=== PATIENT | male | born 1980 | race Caucasian/White ===

== ENCOUNTER 2020-06-16 08:36 | Outpatient (REF) | payer OTHER, SELFPAY ==
[2020-06-16 09:48] LABS: Hematocrit 50.2 % (42-52); Hemoglobin 16.4 g/dl (14.0-18.0); Mean Corpuscular HGB Conc 32.7 g/dl (31.0-36.0); Mean Corpuscular Hemoglobin 30.3 pg (27.0-33.0); Mean Corpuscular Volume 92.6 fL (80-98); Mean Platelet Volume 10.6 fL (9.4-12.4); Platelet Count 271 X10*3/uL (160-400); Red Blood Count 5.42 X10*6/uL (4.60-5.80); Red Cell Distribution Width 12.5 % (11.0-16.0); White Blood Count 9.8 X10*3/uL (4.8-10.8)
[2020-06-16 10:13] LABS: Alanine Aminotransferase 39 U/L (0-40); Albumin Level 4.6 g/dL (3.5-5.0); Alkaline Phosphatase 83 U/L (39-117); Anion Gap 13 (12-20); Aspartate Amino Transferase 21 U/L (5-37); Bilirubin Total 0.4 mg/dL (0.0-1.0); Blood Urea Nitrogen 14 mg/dL (9-16); Calcium 9.4 mg/dL (8.4-10.2); Carbon Dioxide 28 mmol/L (22-29); Chloride 103 mmol/L (96-108); Cholesterol 195 mg/dL; Estimated Glomerular Filt Rate > 60; Glucose Fasting 118 mg/dL (60-99); HDL Cholesterol 35 mg/dL; LDL Cholesterol Calculated 112 mg/dl; Potassium 4.3 mmol/l (3.3-5.1); Sodium 140 mmol/L (135-145); Total Protein 7.8 g/dL (6.5-8.0); Triglycerides 240 mg/dL
[2020-06-16 10:22] LABS: Estimated Average Glucose 126 mg/dL
[2020-06-16 10:37] LABS: TSH reflex Free T4 1.22 mIU/mL (0.32-4.0)
== END 2020-06-16 08:37 | disposition home or self-care (01) ==
LOC: HO.LAB 08:36
PROVIDERS: Visit Provider Physician Assistant
DX: I10 Essential (primary) hypertension (principal); K64.9 Unspecified hemorrhoids; K76.0 Fatty (change of) liver, not elsewhere classified; Z13.1 Encounter for screening for diabetes mellitus; Z13.220 Encounter for screening for lipoid disorders
CPT/HCPCS: 36415; 80053; 80061; 83036; 84443; 85027

== ENCOUNTER → 2020-06-30 09:02 | Outpatient (BNVA) | payer OTHER, SELFPAY | PROVIDERS: PCP Physician Assistant; Visit Provider Surgery | DX: K42.9 Umbilical hernia without obstruction or gangrene (principal); K40.90 Unilateral inguinal hernia, without obstruction or gangrene, not specified as recurrent | CPT/HCPCS: 99202 ==

== ENCOUNTER 2020-07-15 09:50 | Day surgery (SDC) | payer OTHER, SELFPAY ==
--- NOTE | 2020-07-13 13:57 | HO.ANESPROP2 ---
Documented by User: Mirlande Blanco 07/13/20 13:59 HPI - Anesthesia Eval Consult details Narrative: 39yo M for Hernia Repair Umbilical with Mesh PMFSH Active Problems Active Problems: All Active Problems (Updated 07/13/20 @ 10:25 by Manuel Javier PA-C) Impaired glucose metabolism (Acute) HTN (hypertension) (Acute) Hypertriglyceridemia (Acute) Screening for hypercholesterolemia (Acute) Fatty liver (Acute) Screening for diabetes mellitus (DM) (Acute) Bleeding hemorrhoid (Acute) Inguinal hernia (Acute) Umbilical hernia (Acute) Past Medical History Medical History Fatty liver HTN (hypertension) Hypertriglyceridemia Inguinal hernia Umbilical hernia Family History Family History Father Myocardial infarction Mother Myocardial infarction Surgical History Surgical History History of back surgery Social History Social History Alcohol intake: never Smoking Status: Former smoker Substance Use Type: Marijuana Advance Directives: No Advance Directives Information Provided: Yes Meds Allergies Allergy/AdvReac Type Severity Reaction Status Date / Time No Known Allergies Allergy Verified 07/15/20 10:38 Exam Exam Date and Time: July 13, 2020 1357 Pertinent Lab Results Pertinent Lab Results: Laboratory Tests 06/16/20 06/16/20 08:49 08:49 WBC 9.8 Hgb 16.4 Hct 50.2 Plt Count 271 Sodium 140 Potassium 4.3 Chloride 103 Carbon Dioxide 28 BUN 14 Creatinine 0.93 Assessment and Plan Assessment Anesthesia Assessment: Chart Reviewed Documented by User: Hector Crocker 07/15/20 10:50 PMFSH Past Medical History Medical History Fatty liver HTN (hypertension) Hypertriglyceridemia Inguinal hernia Umbilical hernia Family History Family History Father Myocardial infarction Mother Myocardial infarction Surgical History Surgical History History of back surgery Social History Social History Alcohol intake: never Smoking Status: Former smoker Substance Use Type: Marijuana Advance Directives: No Advance Directives Information Provided: Yes Meds Allergies Allergy/AdvReac Type Severity Reaction Status Date / Time No Known Allergies Allergy Verified 07/15/20 10:38 Exam Airway Mallampati Class: II TM Dist: >3cm Neck ROM: Full Loose/Missing/Broken Teeth: Yes and Upper
[2020-07-14 09:56] VITALS: BMI 32.0
[2020-07-15] VITALS (12 sets, daily range): BP systolic 128–154; BP diastolic 86–100; PULSE 85–107; RESP 11–20; TEMP 36.2–36.6; O2SAT 95–99; BMI 31.1
[2020-07-15] MEDS: Lactated Ringers 1,000 ML 100 ML IVCONT (11:24)
--- NOTE | 2020-07-15 11:34 | MHC.SHP ---
Pre-Procedural Eval Section B Chief Complaint: Umbilical Hernia Allergies: Allergies Allergy/AdvReac Type Severity Reaction Status Date / Time No Known Allergies Allergy Verified 07/15/20 10:38 Plan I have reviewed the history and physical and performed a pertinent physical examination on my patient. No changes have occurred unless specified.
--- NOTE | 2020-07-15 11:34 | W.PM.OPN ---
Operative Note Operative Note Date of Service: 07/15/20 Narrative: Preop diagnosis: Umbilical hernia Postop diagnosis: Umbilical hernia Surgeon: Alok Bhatt MD
--- NOTE | 2020-07-15 12:32 | P.BOP_ITS ---
Brief Operative Note Date of Service: 07/15/20 Pre-op diagnosis: umbilical hernia Post-op diagnosis: same Procedure: repair of umbilical hernia with mesh Implants: mesh Surgeon: Alok Bhatt MD Anesthesia: GLMA Drawbench Operator: Sonali Henley Estimated blood loss (mL): 1 Pathology: none sent Condition: stable Disposition: PACU
--- NOTE | 2020-07-15 12:33 | W.PM.OPN ---
Operative Note Operative Note Date of Service: 07/15/20 Narrative: Procedure done: Repair of umbilical hernia with Ventralex mesh Preop diagnosis: umbilical hernia Postop diagnosis: the same Surgeon: Alok Bhatt M.D. physician assistant: SHERIF Henley The patient is a 39-year-old male with a mass on the umbilicus, consistent with umbilical hernia. Partially reducible. In view of increase in size and symptoms he wanted to proceed with repair. He understood the technique of repair with mesh. He was aware of the risks, benefits, and alternatives. The patient was brought to the operating room and placed supine the table under general anesthesia via laryngeal mask airway. The periumbilical area was prepped and draped in the usual sterile fashion. A surgical time-out was done. The patient received cefazolin 2 g IV preoperatively. I infiltrated the planned line of incision with lidocaine 1%. I made the incision using a blade 15 on the supraumbilical margin transversely. This was carried down through the full-thickness of the skin and subcutaneous fat. I proceeded to lift up the umbilicus as a flap using Allis clamps. I divided adhesions on the umbilicus to the hernia sac. This was done using Metzenbaum scissors and the cautery. I proceeded to continue to define the sac down to the fascial edge. This was done by dissecting the entire hernia and its contents using Metzenbaum scissors and electrocautery. By doing so we were able to clearly define the fascial edge. The fascial defect was about 2 cm. I then proceeded to continue to dissect the rest of the adherent fibrous tissue from the hernia contents. The hernia contents consisted of only omental fat. I was able to reduce the hernia completely and defined the margins around this at the peritoneal surface. I used a small-sized Ventralex mesh. This was positioned underneath the abdominal wall and flattened. This provided adequate coverage of the fascia defect. I secured the mesh with Prolene 2-0 sutures to the fascial edges to the Prolene straps on both sides. The Prolene straps were then trimmed flush on the fascial layer. I closed the fascial defect with a [id number] Maxon 1 stitch. The umbilicus was tacked down to the fascia with Dexon 2-0 sutures to recreate the dimple. The subdermal layer was reapposed with Dexon 3-0 interrupted sutures. The incision was closed with a running subcuticular Dexon 4-0 sutures. Dressings were applied. The incision was infiltrated with Marcaine 0.5% for postop analgesia and the procedure was completed The patient tolerated the procedure well. There were no immediate complications noted. Initial fine counts sponges and instruments were correct. Estimated blood loss was minimal. The patient was extubated without difficulty and transferred to the recovery room with stable vital signs.
[2020-07-15] MEDS: oxyCODONE HCl Immed Release 5 MG TABLET 10 MG PO (12:52)
[2020-07-15] MEDS: fentaNYL citrate/PF 100 MCG/2 ML VIAL 50 MCG IVPUSH ×3 (12:55→13:20)
== END 2020-07-15 14:22 | disposition home or self-care (01) ==
PROVIDERS: PCP Physician Assistant; Visit Provider Surgery
PROC: (CPT 49585; principal; 2020-07-15 12:30)
DX: K42.9 Umbilical hernia without obstruction or gangrene (principal); I10 Essential (primary) hypertension
CPT/HCPCS: 49585; C1781; J0690; J1100; J2250; J2405; J3010

== ENCOUNTER 2020-11-25 15:40 | Outpatient (REF) | payer OTHER, SELFPAY ==
--- NOTE | ~2020-11-25 | US_ITS ---
EXAMINATION: US SOFT TISSUE OF THE NECK CLINICAL INFORMATION: Mass on left side of neck. COMPARISON: None TECHNIQUE: Linear transducer grayscale and color Doppler examination of the left lateral neck. FINDINGS: There is a 0.8 x 0.6 x 0.9 cm left cervical lymph node in the area of palpable abnormality. This is normal in size and demonstrates normal ultrasound morphology and flow. No soft tissue mass or fluid collection is seen. US/US soft tiss head and/or neck IMPRESSION: Normal left cervical lymph node in the area of palpable abnormality.
== END 2020-11-25 15:41 | disposition home or self-care (01) ==
LOC: HO.US 15:40
PROVIDERS: PCP Physician Assistant; Visit Provider Physician Assistant
DX: R22.1 Localized swelling, mass and lump, neck (principal)
CPT/HCPCS: 76536

== ENCOUNTER → 2021-04-05 08:53 | Outpatient (BNVA) | payer OTHER, SELFPAY | PROVIDERS: PCP Physician Assistant; Referring Provider Physician Assistant; Visit Provider Surgery | DX: K40.20 Bilateral inguinal hernia, without obstruction or gangrene, not specified as recurrent (principal) | CPT/HCPCS: 99212 ==

== ENCOUNTER 2021-04-29 15:10 | Emergency (ER) | payer OTHER, SELFPAY ==
--- NOTE | ~2021-04-29 | CT_ITS ---
EXAMINATION: CT THORACIC SPINE WITHOUT CONTRAST CT LUMBAR SPINE WITHOUT CONTRAST CLINICAL INFORMATION: Back pain. T9 tenderness. Positive straight leg raise. COMPARISON: CT abdomen/pelvis dated 01/20/2020. Chest radiograph dated 10/27/2010. TECHNIQUE: Contiguous axial CT images of the thoracic spine were obtained without contrast. Contiguous axial CT images of the lumbar spine were obtained without contrast. Sagittal and coronal reformats were provided and reviewed. This CT examination was performed using dose optimization techniques as appropriate, variously including the following: *Automated exposure control. *Adjustment of mA and/or kV according to patient size (this includes techniques or standardized protocols for targeted exams where dose is matched to indication/reason for exam; i.e. extremities or head). *Use of iterative reconstruction technique. DOSE: 2043 mGy-cm FINDINGS: THORACIC SPINE: Redemonstration of thoracic spine and dextrocurvature with dorsal stabilization hardware. Evaluation somewhat limited secondary to hardware artifact, however, no hardware fracture. No perihardware lucency to suggest loosening or infection. There is diffuse bony fusion of the posterior elements. No acute osseous fracture. No significant subluxation. No loss of vertebral body height. Mild multilevel loss of intervertebral disc height. No significant endplate degenerative changes. No lytic or blastic osseous lesion. Mild dependent atelectasis within the visualized lungs. No soft tissue mass or fluid collection. LUMBAR SPINE: Posterior stabilization hardware to the thoracic spine extending to the posterior elements of L1. No visualized hardware abnormality. The lumbar lordosis is maintained. No acute fracture or subluxation. No loss of vertebral body or intervertebral disc height. No lytic or blastic osseous lesion. Mild bilateral facet arthropathy at L4 through S1. The visualized paraspinal soft tissues are unremarkable. No abnormal soft tissue mass or fluid collection. Left extraforaminal disc protrusion at L3-L4 which contacts the exiting left L3 nerve root and causes mild left neural foraminal stenosis. No additional significant central canal or neural foraminal stenosis. CT/CT thoracic spine wo con IMPRESSION: THORACIC SPINE: 1. Dextrocurvature of the thoracic spine with posterior stabilization hardware. No evidence of hardware complication. Diffuse osseous bridging of the posterior elements. 2. No acute fracture. No lytic or blastic osseous lesion. LUMBAR SPINE: 1. A left extraforaminal disc protrusion at L3-L4 which contacts the exiting left L3 nerve root and causes mild left neural foraminal stenosis. 2. No acute osseous abnormality.
--- NOTE | ~2021-04-29 | CT_ITS ---
EXAMINATION: CT HEAD WITHOUT CONTRAST CLINICAL INFORMATION: Dizziness. COMPARISON: CT head dated from 05/14/2016. TECHNIQUE: Contiguous axial imaging was performed from the skull base to vertex without intravenous administration of contrast. This CT examination was performed using dose optimization techniques as appropriate, variously including the following: *Automated exposure control *Adjustment of mA and/or kV according to patient size (this includes techniques or standardized protocols for targeted exams where dose is matched to indication/reason for exam; i.e. extremities or head) *Use of iterative reconstruction technique DLP: 477 mGy-cm FINDINGS: There is no evidence of acute intracranial hemorrhage or edematous territorial infarction. There is no abnormal attenuation within the brain parenchyma. Mays-white matter differentiation is preserved. The ventricles are normal in size and configuration. No evidence for obstructive hydrocephalus. No abnormal mass effect or midline shift. No extra-axial fluid collections. No acute soft tissue or osseous abnormalities. Mucous retention cysts in the maxillary sinuses. The mastoids are clear. CT/CT head/brain wo con IMPRESSION: No evidence of acute intracranial hemorrhage or edematous territorial infarction.
[2021-04-29 15:15] VITALS: BP 150/96; PULSE 100; RESP 18; TEMP 36.8; O2SAT 98; BMI 31.1
--- NOTE | 2021-04-29 16:38 | ED_ITS ---
HPI - Back Pain/Injury General Chief Complaint: Back Pain/Injury Stated Complaint: back pain Time Seen by Provider: 04/29/21 16:38 Source: patient Mode of arrival: ambulatory Limitations: no limitations History of Present Illness HPI Narrative: 40-year-old male with a history of back surgeries, presents for atraumatic bilateral low back pain, which .comes and goes, and the pain, radiates down his right leg. Patient has pain,with ambulation. States he has some tingling in his buttock. And the right leg pain,.stops at his knee. Patient and patient has also had a headache and has felt nauseous for the last 2 weeks. Patient feels dizzy when he sits up. Patient has a past medical history of prediabetes, hypertension, hyperlipidemia. He is vaccinated for COVID. Related Data Previous Rx's Medication Instructions Recorded cetirizine 10 mg tablet (Allergy 10 mg PO DAILY PRN 90 Days #90 tab 03/09/21 Relief (cetirizine)) cyclobenzaprine 5 mg tablet 5 mg PO TID PRN 10 Days #30 tab 03/09/21 docusate sodium 100 mg capsule 100 mg PO DAILY #30 cap 03/09/21 gemfibrozil 600 mg tablet 600 mg PO BID 30 Days #60 tab 03/09/21 hydrochlorothiazide 12.5 mg tablet 12.5 mg PO DAILY 30 Days #30 tab 03/09/21 naproxen 500 mg tablet 500 mg PO BID 15 Days #30 tab 03/09/21 amoxicillin 875 mg-potassium 1 tab PO BID 10 Days #20 tab 04/29/21 clavulanate 125 mg tablet (Augmentin) cyclobenzaprine 5 mg tablet 5 mg PO TID PRN 3 Days #9 tab 04/29/21 ketorolac 10 mg tablet 10 mg PO Q6H 5 Days #20 tab 04/29/21 Allergies Allergy/AdvReac Type Severity Reaction Status Date / Time No Known Allergies Allergy Verified 04/05/21 09:01 Review of Systems Constitutional: Constitutional: Denies body ache(s), Denies chills, Reports fatigue, Denies fever(s), Reports headache(s), Denies malaise and Denies w eakness Eyes: Eyes: Denies blurry vision, Denies change in vision and Denies diplopia ENT: Denies vertigo, Reports dizziness, Denies otalgia, Reports headache(s), Denies mouth pain, Denies post nasal drip, Denies sinus pain, Denies sinus pressure, Denies sore throat and Denies throat swelling Cardiovascular: Cardiovascular: Denies chest pain, Denies syncope, Denies leg edema, Denies lightheadedness, Denies Loss of Consciousness, Denies palpitations and Denies dyspnea Respiratory: Respiratory: Denies chest congestion, Denies cough and Denies dyspnea Gastrointestinal: Gastrointestinal: Denies abdominal pain, Denies hematochezia, Denies constipation, Denies diarrhea, Reports nausea and Denies vomiting Musculoskeletal: Musculoskeletal: Reports back pain and Reports radiating pain into limb Neurologic: Denies confusion, Denies vertigo, Reports dizziness, Denies s yncope, Reports headache(s) and Denies weakness Psychiatric: Psychiatric: Denies anxiety, Denies confusion and Denies depression Endocrine: Endocrine: Reports fatigue and Denies palpitations Allergic/Immunologic: Allergic/Immunologic: Denies throat swelling PMFSH Past Medical History Medical History Bilateral inguinal hernia Fatty liver HTN (hypertension) Hypertriglyceridemia Inguinal hernia Umbilical hernia Surgical History History of back surgery Family History Family History Father Myocardial infarction Mother Myocardial infarction Social History Social History Housing: Apartment Alcohol intake: never Patient Tobacco Use Status: Never used Tobacco Tobacco use type: Cigarette e-Cigarette/Vaping Use: Never Used Second Hand Smoke Exposure: No Substance Use Type: Marijuana Advance Directives: No Advance Directives Information Provided: No service: No Current occupational status: unemployed Physical Exam Vital Signs: Vital Signs: Last Vital Signs Temp 98.3 F 04/29/21 15:15 Pulse 88 04/29/21 18:00 Resp 16 04/29/21 18:00 BP 128/77 04/29/21 18:00 Pulse Ox 97 04/29/21 18:00 Body Mass Index 31.1 Const: General: No confusion Nutritional Appearance: well nourished Orientation/consciousness: No confusion Limitations: no limitations HENMT: Head: Yes normal to inspection, Yes normocephalic and Yes atraumatic Ears: hearing grossly normal bilaterally, external ears normal, TM's normal bilaterally and EAC's normal General nose exam: Normal external nose present Face and sinus: Yes normal facial exam and Yes sinuses nontender Mouth: Normal oral and palatal mucosa present Throat: Yes posterior oropharynx normal Eyes: Conjunctivae: conjunctivae normal Pupils: Equal, round and reactive pupils present EOM: EOMs intact bilaterally Neck: Neck: Yes full ROM, Yes no lymphadenopathy and Yes supple Resp: Effort & Inspection: normal respiratory effort and able to speak in complete sentences Auscultation: clear to auscultation bilaterally, no crackles, no rales, no rhonchi and no wheezes Cardio: Rate: regular rate Rhythm: regular rhythm Heart sounds: S1 normal heart sound present and S2 normal heart sound present GI: Inspection: Yes normal to inspection Palpation (GI): Soft to palpation, nontender, no guarding and not rigid Percussion: Yes normal to percussion Auscultation: normal bowel sounds Back/Spine/Pelvis: Cervical Spine: normal cervical lordosis, cervical ROM normal and No Cervical spine tenderness Thoracic/Lumbar Spine: thoraco-lumbar ROM limited with forward flexion, thoracic spinal tenderness at T9, No lumbar spinal tenderness and straight leg raise positive left Skin: General skin exam: no rashes or lesions noted Neuro: General: No confusion Cranial nerves: Yes Equal, round and reactive pupils present Extrem: General: Yes normal to inspection and Yes full ROM Psych: Appearance: grossly normal Affect: normal affect Attitude: cooperative Thought process: Normal thought process present Course Course Course Narrative: 40-year-old male presents with 2 weeks of low back pain,radiating to his right leg. In addition he has had a headache, has felt dizzy, and nauseous. Patient has a benign neurological exam. His head CT shows sinusitis He has intact lower extremity sensation, DTRs, pulses, and motor strength. He is tender over his thoracic spine. CT/CT lumbar spine wo con IMPRESSION: THORACIC SPINE: 1. Dextrocurvature of the thoracic spine with posterior stabilization hardware. No evidence of hardware complication. Diffuse osseous bridging of the posterior elements. 2. No acute fracture. No lytic or blastic osseous lesion. ? LUMBAR SPINE: 1. A left extraforaminal disc protrusion at L3-L4 which contacts the exiting left L3 nerve root and causes mild left neural foraminal stenosis. 2. No acute osseous abnormality.? Will treat sinus infection with Augmentin, gave ketorolac and Flexeril, follow-up with primary care provider. MDM - Back Pain/Injury Lab Data Labs: Lab Results 04/29/21 04/29/21 04/29/21 Range/Units 17:48 18:05 18:05 POC Glucose 92 (60-115) mg/dL COVID-19 (FERNANDO) Negative (Negative) COVID-19 Clin Com See Note S. pyogenes GrpA JIN Negative (Negative) Discharge Plan Discharge Clinical Impression: Herniated intervertebral disc of lumbar spine Sinusitis Qualifiers: Sinusitis location: maxillary Chronicity: acute Recurrence: not specified as recurrent Qualified Code(s): J01.00 - Acute maxillary sinusitis, unspecified Patient Disposition: Home, Self-Care Additional Instructions: please call your primary care doctor for follow-up appointment. I have prescri bed something called ketorolac, which is like very strong ibuprofen. Please do not take any ibuprofen containing products we take this. No naproxen, no Aleve, no Motrin, no Excedrin. Start the Augmentin for the sinusitis. You may take cyclobenzaprine to help with the back pain. If he makes too sleepy, take it only in the evening. If you feel weak in your legs, you have numbness or tingling in your groin, if you become incontinent of bowel or bladder, if you have sudden severe headache, visual changes, or any other new or concerning symptoms, please return to emergency room immediately. Prescriptions: New amoxicillin-pot clavulanate [Augmentin] 875-125 mg tablet 1 tab PO BID 10 Days Qty: 20 RF: 0 ketorolac 10 mg tablet 10 mg PO Q6H 5 Days Qty: 20 RF: 0 cyclobenzaprine 5 mg tablet 5 mg PO TID PRN (Reason: muscle spasm) 3 Days Qty: 9 RF: 0 No Action gemfibrozil 600 mg tablet 600 mg PO BID 30 Days Qty: 60 RF: 4 cetirizine [Allergy Relief (cetirizine)] 10 mg tablet 10 mg PO DAILY PRN (Reason: allergy symptoms) 90 Days Qty: 90 RF: 1 cyclobenzaprine 5 mg tablet 5 mg PO TID PRN (Reason: muscle spasm) 10 Days Qty: 30 RF: 0 docusate sodium 100 mg capsule 100 mg PO DAILY Qty: 30 RF: 3 hydrochlorothiazide 12.5 mg tablet 12.5 mg PO DAILY 30 Days Qty: 30 RF: 4 naproxen 500 mg tablet 500 mg PO BID 15 Days Qty: 30 RF: 1 Interventions: ED Discharge Assessment Last Done: 04/29/21 20:17 Discharge Date/Time: 04/29/21 20:19
[2021-04-29 17:53] LABS: Glucose, Whole Blood 92 mg/dL (60-115)
[2021-04-29 18:00] VITALS: BP 128/77; PULSE 88; RESP 16; O2SAT 97
[2021-04-29] MEDS: oxyCODONE HCl Immed Release 5 MG TABLET 10 MG PO (18:00)
[2021-04-29 18:35] LABS: Strep A Nucleic Acid Negative (Negative)
[2021-04-29 18:47] LABS: COVID-19 Test Negative (Negative)
[2021-04-29] MEDS: Acetaminophen 325 MG TABLET 975 MG PO (20:07)
[2021-04-29] MEDS: Ketorolac Tromethamine 15 MG/ML VIAL 30 MG IM (20:07)
== END 2021-04-29 20:19 | disposition home or self-care (01) ==
PROVIDERS: Physician Assistant; Emergency Provider Emergency Medicine
DX: M51.26 Other intervertebral disc displacement, lumbar region (principal); J01.00 Acute maxillary sinusitis, unspecified; Z20.822 Contact with and (suspected) exposure to COVID-19; R51.9 Headache, unspecified; I10 Essential (primary) hypertension; Z79.899 Other long term (current) drug therapy
CPT/HCPCS: 36415; 70450; 72128; 72131; 82947; 87635; 87651; 96372; 99284; J1885

== ENCOUNTER 2021-05-09 07:35 | Day surgery (SDC) | payer OTHER, SELFPAY ==
[2021-05-02 13:58] VITALS: BMI 30.9
--- NOTE | 2021-05-08 11:55 | HO.ANESPROP2 ---
Documented by User: Mirlande Blanco NP 05/08/21 11:57 HPI - Anesthesia Eval Consult details Narrative: 40yo M for Bilateral Hernia Repair Inguinal with Mesh s/p umbilical her[facility] 07[facility]2020 [facility] Active Problems Active Problems: All Active Problems (Updated 05/02/21 @ 14:00 by Luzmaria House RN) Bleeding hemorrhoid (Acute) Screening for diabetes mellitus (DM) (Acute) Screening for hypercholesterolemia (Acute) Impaired glucose metabolism (Acute) HTN (hypertension) (Acute) Mass of left side of neck (Acute) Cervicalgia (Acute) Allergic rhinitis (Acute) Annual physical exam (Acute) Obese (Acute) Bilateral inguinal hernia (Acute) Hypertriglyceridemia (Acute) Umbilical hernia (Acute) Inguinal hernia (Acute) Past Medical History Medical History (Updated 05/02/21 @ 14:00 by Luzmaria House RN) Bilateral inguinal hernia COVID-19 vaccine series completed Fatty liver HTN (hypertension) Hypertriglyceridemia Inguinal hernia Umbilical hernia Family History Family History Father Myocardial infarction Mother Myocardial infarction Surgical History Surgical History (Updated 05/02/21 @ 13:49 by Luzmaria House RN) History of back surgery Hx laparoscopic cholecystectomy Hx of umbilical hernia repair Social History Social History (Updated 05/02/21 @ 13:56 by Luzmaria House RN) Housing: Apartment Alcohol intake: never Patient Tobacco Use Status: Former Tobacco user Quit Date: 2016 Tobacco use type: Cigarette e-Cigarette/Vaping Use: Never Used Second Hand Smoke Exposure: No Use of substances other than those prescribed or required for medical reasons: Yes Substance Use Type: Marijuana Substance Use Type Other:: advised to hold pre-op Have you been hit, kicked, punched, or otherwise hurt by someone within the past year? If so, by whom?: No Are you DNR?: No Advance Directives: No Advance Directives Information Provided: Yes (informational brochure mailed) Advance Directives on File: No Recently lost weight without trying: No Eating poorly because of decreased appetite: No Nutrition Risks: No Nutritional Risk service: No Current occupational status: unemployed Meds Allergies Allergy/AdvReac Type Severity Reaction Status Date / Time No Known Allergies Allergy Verified 04/05/21 09:01 Exam Exam Date and Time: May 08, 2021 1155 Height,Weight and Vital Signs: Height 6 ft Weight 103.419 kg Assessment and Plan Assessment Anesthesia Assessment: Chart Reviewed Documented by User: Gabriel Blandon 05/09/21 10:44 [facility] Past Medical History Medical History (Updated 05/02/21 @ 14:00 by Luzmaria House RN) Bilateral inguinal hernia COVID-19 vaccine series completed Fatty liver HTN (hypertension) Hypertriglyceridemia Inguinal hernia Umbilical hernia Functional capacity: independent ambulation Family History Family History Father Myocardial infarction Mother Myocardial infarction Family history of problems with anesthesia: No Surgical History Surgical History (Updated 05/02/21 @ 13:49 by Luzmaria House RN) History of back surgery Hx laparoscopic cholecystectomy Hx of umbilical hernia repair History of Problems with Anesthesia: No Social History Social History (Updated 05/02/21 @ 13:56 by Luzmaria House RN) Housing: Apartment Alcohol intake: never Patient Tobacco Use Status: Former Tobacco user Quit Date: 2016 Tobacco use type: Cigarette e-Cigarette/Vaping Use: Never Used Second Hand Smoke Exposure: No Use of substances other than those prescribed or required for medical reasons: Yes Substance Use Type: Marijuana Substance Use Type Other:: advised to hold pre-op Have you been hit, kicked, punched, or otherwise hurt by someone within the past year? If so, by whom?: No Are you DNR?: No Advance Directives: No Advance Directives Information Provided: Yes (informational brochure mailed) Advance Directives on File: No Recently lost weight without trying: No Eating poorly because of decreased appetite: No Nutrition Risks: No Nutritional Risk service: No Current occupational status: unemployed Meds Allergies Allergy/AdvReac Type Severity Reaction Status Date / Time No Known Allergies Allergy Verified 04/05/21 09:01 Exam Airway Mallampati Class: II TM Dist: >3cm Neck ROM: Full Loose/Missing/Broken Teeth: Yes Heart: rrr Lungs: bl breath sounds Assessment and Plan Final Anesthetic Review Family History of Problems with Anesthesia: No History of Problems with Anesthesia: No NPO: Yes ASA Class: II Final Preanesthetic Review: Meds/Allgs Chart Reviewed Patient Risk: Intermediate Procedure Risk: Intermediate Anesthetic Plan Anesthetic Plan: GA Disposition: Standard PACU
[2021-05-09] VITALS (16 sets, daily range): BP systolic 119–157; BP diastolic 65–106; PULSE 86–97; RESP 15–18; TEMP 36.1–36.9; O2SAT 96–99
[2021-05-09] MEDS: Lactated Ringers 1,000 ML 100 ML IVCONT (07:56)
--- NOTE | 2021-05-09 08:19 | P.HPSUR_ITS ---
Pre-Procedural Eval Section A Date of Service: 05/09/21 The patient is an INPATIENT: No Section B Chief Complaint: Bilateral Inguinal Hernia Details of Present Illness: has reducible small bilateral inguinal hernias Relevant Family History (Specify if Yes): No Relevant Social History: None Present Medications: see Short Stay Collaborative assessment Medical History: Significant History ( impaired glucose metabolism, chronic back pain) History of Previous Operations: No relevant previous surgery Allergies: Allergies Allergy/AdvReac Type Severity Reaction Status Date / Time No Known Allergies Allergy Verified 04/05/21 09:01 Review of Systems Sugical H&P ROS: Negative: Constitution, Cardiovascular, Respiratory, Neurological, Psychiatric, Hem-Onc, Allergic/Immunologic, Gastrointestinal, Genitourinary, Musculoskeletal, Integumentary, Endocrine and Eyes/Ears/Nose/Throat Exam Surgical H&P Exam: Normal: HEENT, Normal: Heart, Normal: Lungs, Normal: Extremi ties, Normal: Abdomen, Normal: Skin and Normal: Neurological Exam Comment: bilateral inguinal hernias, small, seen with Valsalva Plan Diagnosis/Plan: Unchanged I have reviewed the history and physical and performed a pertinent physical examination on my patient. No changes have occurred unless specified.
--- NOTE | 2021-05-09 11:46 | W.PM.OPN ---
Operative Note Operative Note Date of Service: 05/09/21 Narrative: Preop diagnosis: Bilateral inguinal hernias Postop diagnosis: Bilateral inguinal hernias Procedure: Repair of bilateral inguinal hernias with mesh Surgeon: Alok Bhatt MD kindergarten instructional assistant: SHERIF Henley The patient is a 40-year-old male with referred to me for bilateral inguinal hernias. These were confirmed on sickle examination in the office. He understood the technique of repair with mesh. He was aware of the risks, benefits, and alternatives Was brought to the operating room placed supine the table under general anesthesia via laryngeal mask airway. Both bilateral inguinal areas were prepped and draped in the usual sterile fashion. A surgical time-out was done. The patient received cefazolin 2 g IV preoperatively I infiltrated the planned line of incision on the left groin using lidocaine 1%. I made a short incision skin with a blade 15 allong an imaginary line from the anterior superior iliac spine to the pubic ramus. I deepened the incision using electrocautery through the thick subcutaneous fat until I was able to visualize the external oblique aponeurosis. I bluntly dissected the aponeurosis to define the external ring. I then made an incision on the external oblique aponeurosis being blade 15. And extended this inferomedially to connect with the external ring using an open tip pair of scissors to enter the inguinal canal. Applied graspers on the edges of each aponeurosis. I bluntly dissected the underside of the external oblique aponeurosis to create a pocket for the mesh. I then proceeded to do bluntly dissect the record its contents urine seeing my index finger until was able pass a Aidan drain around this. This Aidan drain was used for retraction. I was able to identify the vas deferens and its accompanying vessels. There was no hernia sac along the traumatic cord. The hernia sac was seen on the floor of the canal and this was therefore a direct hernia. I defined the hernia to make sure that this was completely separate from the cord by sharply dissecting fibrous adhesions. I then proceeded to reinforce hernia medium-sized. The plug was secured with Prolene 2 sutures to shelving edge of of the inguinal ligament laterally and the internal oblique superiorly and medially using the inner leaves of the plug.. I reinforced the floor of the canal With a keyhole mesh. The tails of the mesh were passed around the cord at the level of the internal ring. For the mesh tails together. I secured the mesh to the shelving edge of the inguinal meant laterally and the internal oblique superiorly and medially using Prolene 2 sutures as well as to the pubic ramus inferomedially. I copiuosly irrigated. I removed the Sheffield drain. I made sure that there was good hemostasis. Once hemostasis was ensured I proceeded to then reappose the external oblique aponeurosis to create the external ring. I then proceeded to do the repair of the inguinal hernia on the right side. I infiltrated the planned end of the ramos with lidocaine 1%. I made a short incision blade 15. I deepened the incision through the thick subcutaneous fat down to the fascia. I defined the external oblique aponeurosis. I identified the external ring. I made an incision on the external ring using blade 15 to enter the canal. I extended this incision with an open tip pair of scissors to connect with the external ring. I bluntly dissected the underside of the aponeurosis. I applied hemostats on both edges. I then proceeded to bluntly dissect the spermatic cord and its contents. I identified the vas deferens and its accompanying vessels. Again, the hernia sac was not seen along the cord but was seen on the floor of the canal. This was therefore a direct hernia again. I this direct hernia from the rest of the cord contents. I reduced this completely and reinforced this hernia with a large size plug. The plug was secured with Prolene 2 sutures to the shelving edge of the inguinal and laterally and the internal oblique superiorly and medially. I reinforced the floor of the canal with a keyhole mesh. The tails of the mesh were passed around the cord at the level of the internal ring. I secured the tails together with Prolene 2 sutures. I flattened the mesh on the floor canal and secured this with Prolene 2 sutures to the shelving edge of the inguinal ligament laterally and this internal oblique medially and superiorly as well as the pubic ramus inferomedially. I then irrigated. I removed the Sheffield drain. I closed the external oblique aponeurosis with a running Dexon 2-0 stitch to re-create the external ring. I then reapposed subcutaneous layer on both incisions using Dexon 3-0 interrupted sutures. I used the skin with a running Dexon 4-0 stitch subcuticular fashion on both incisions. Both incisions were infiltrated with Marcaine 0.5% for postop analgesia. Dressings were applied and the procedure was completed The patient tolerated procedure well. No complication noted. Initial and final counts of sponges and instruments were correct. Estimated blood loss was about 20 cc The patient was extubated without difficulty and transferred to the recovery room with stable vital signs
[2021-05-09] MEDS: fentaNYL citrate/PF 100 MCG/2 ML VIAL 25 MCG IVPUSH ×7 (12:00→12:59)
[2021-05-09] MEDS: oxyCODONE HCl Immed Release 5 MG TABLET 10 MG PO (12:24)
== END 2021-05-09 14:00 | disposition home or self-care (01) ==
PROVIDERS: PCP Physician Assistant; Visit Provider Surgery
PROC: (CPT 49505; principal; 2021-05-09 09:20)
DX: K40.20 Bilateral inguinal hernia, without obstruction or gangrene, not specified as recurrent (principal); K66.0 Peritoneal adhesions (postprocedural) (postinfection); K76.0 Fatty (change of) liver, not elsewhere classified; I10 Essential (primary) hypertension; E78.1 Pure hyperglyceridemia; Z79.899 Other long term (current) drug therapy; Z87.891 Personal history of nicotine dependence
CPT/HCPCS: 49505; C1781; J0690; J1100; J2250; J2405; J3010

== ENCOUNTER → 2021-05-22 09:43 | Outpatient (BNVA) | payer OTHER, SELFPAY | PROVIDERS: PCP Physician Assistant; Referring Provider Physician Assistant; Visit Provider Surgery | DX: Z48.815 Encounter for surgical aftercare following surgery on the digestive system (principal); Z87.19 Personal history of other diseases of the digestive system | CPT/HCPCS: 99212 ==

== ENCOUNTER 2021-06-12 07:24 | Outpatient (REF) | payer OTHER, SELFPAY ==
[2021-06-12 08:30] LABS: Hematocrit 46.3 % (42.0-52.0); Hemoglobin 15.3 g/dl (14.0-18.0); Mean Corpuscular Hemoglobin 30.2 pg (27.0-33.0); Mean Corpuscular Volume 91.3 fL (80.0-98.0); Platelet Count 228 X10*3/uL (160-400); Red Blood Count 5.07 X10*6/uL (4.60-5.80); Red Cell Distribution Width 12.3 % (11.0-16.0)
[2021-06-12 08:40] LABS: Estimated Average Glucose 134 mg/dL; Hemoglobin A1c % 6.3 %
[2021-06-12 08:45] LABS: Creatinine Urine 228.74 mg/dL; Microalbum/Creatinine Ratio Ur 6.9 ug/mg cr
[2021-06-12 08:52] LABS: Alanine Aminotransferase 29 U/L (0-40); Albumin Level 4.3 g/dL (3.5-5.0); Alkaline Phosphatase 87 U/L (39-117); Anion Gap 11 (12-20); Aspartate Amino Transferase 14 U/L (5-37); Bilirubin Total 0.4 mg/dL (0.0-1.0); Blood Urea Nitrogen 11 mg/dL (9-16); Calcium 9.9 mg/dL (8.4-10.2); Carbon Dioxide 31 mmol/L (22-29); Chloride 101 mmol/L (96-108); Cholesterol 182 mg/dL; Estimated Glomerular Filt Rate > 60; Glucose Fasting 126 mg/dL (60-99); HDL Cholesterol 36 mg/dL; LDL Cholesterol Calculated 101 mg/dl; Potassium 4.2 mmol/L (3.3-5.1); Sodium 139 mmol/L (135-145); Total Protein 7.5 g/dL (6.5-8.0); Triglycerides 229 mg/dL
[2021-06-12 09:16] LABS: TSH reflex Free T4 1.81 uIU/mL (0.32-4.0)
== END 2021-06-12 07:25 | disposition home or self-care (01) ==
LOC: HO.LAB 07:24
PROVIDERS: PCP Physician Assistant; Visit Provider Physician Assistant
DX: I10 Essential (primary) hypertension (principal)
CPT/HCPCS: 36415; 80053; 80061; 82043; 83036; 84443; 85027

== ENCOUNTER 2021-07-27 11:00 | Outpatient (RCR) | payer OTHER, SELFPAY ==
[2021-07-17 09:59] VITALS: BP 134/79; PULSE 88
--- NOTE | 2021-07-17 11:47 | MHC.PT.EP ---
[facility] [place] Office [place] Office [place] Office [address] [phone] F: [phone] F: [phone] F: [phone] F: [phone] Physical Therapy Plan of Care Date of Evaluation: Date of Surgery: NA Diagnosis: Intervertebral disc disorders with radiculopathy, lumbar region Assessment: Juan is a 40 year old male who is referred to PT for Intervertebral disc disorders with radiculopathy, lumbar region . Pt reports of having sudden onset of back pain about 4 months back. He reports of having low back pain which travels to B and cervical spine and head. Denies any trauma or fall. On PT examination he presented with 0/10 pain at rest with the pain going up to 10/10 during episodes of pain, decreased lumbar ROM, decreased muscle strength, altered posture and no TTP. He also presented with significant tightness. Due to these impairments he has difficulty performing ADLS during episodes of pain. He works in a factory. He would benefit from skilled PT to address the aforementioned impairments and improve tolerance to functional activities. Frequency and Duration: The patient will be seen 2/week for 5 weeks Short Term Goals: 1. Pt will have 50% decrease in the frequency and intensity of symptoms which will enable to remain standing during episodes of pain in 2 weeks. 2. Pt will be able to move trunk through all planes of motion without pain which will enable him to dress his lower body in 3 weeks. Snf Goals: 1.Pt will demonstrate an increase in muscle strength by 1 grade which will enable him to perform ADLS without pain in 4 weeks. 2. Pt will be independent with HEP for symptom management and maintenance following d/c in 5 weeks Treatment Plan: Modalities to reduce pain, spasms and effusion. Manual therapy to restore motion and function. Therapeutic exercise to improve strength and flexibility. Neuromuscular re-education for posture and balance. Therapeutic activities to return to functional activities of daily living. Electronically signed by: June Hahn PT DPT Please sign and return to therapist. Thank you for your referral.
--- NOTE | 2021-08-10 11:20 | MHC.PT.DC ---
[facility] [place] Office [place] Office [place] Office [address] Uribe [address] [phone] F: [phone] F: [phone] F: [phone] F: [phone] Physical Therapy Discharge Report Diagnosis: Intervertebral disc disorders with radiculopathy, lumbar region Date of Surgery: NA Date of Evaluation: 07/17/21 Date of Discharge: 08/10/21 Treatments to Date: 3 Cancellations to Date: 0 No Shows to Date: 0 Discharge Status: Visit Non-compliance Discharge Summary: Juan has no showed for 4 appointments in a row. He has therefore been d/c from therapy for non compliance. Electronically signed by: June Hahn PT DPT Please sign and return to therapist. Thank you for your referral.
== END 2021-08-10 11:21 | disposition home or self-care (01) ==
LOC: HO.PT 11:00
PROVIDERS: PCP Physician Assistant; Visit Provider Physician Assistant
DX: M51.16 Intervertebral disc disorders with radiculopathy, lumbar region (principal)
CPT/HCPCS: 97110; 97112; 97161

== ENCOUNTER 2024-02-13 16:17 | Emergency (ER) | payer OTHER, SELFPAY ==
--- NOTE | ~2024-02-13 | CT_ITS ---
EXAMINATION: CT HEAD WITHOUT IV CONTRAST CLINICAL INFORMATION: severe headache COMPARISON: CT head without contrast 04/29/2021 TECHNIQUE: Contiguous axial imaging was performed from the skull base to vertex without intravenous contrast. Sagittal and coronal reformatted images were obtained. This CT examination was performed using dose optimization techniques as appropriate, variously including the following: * Automated exposure control * Adjustment of mA and/or kV according to patient size (this includes techniques or standardized protocols for targeted exams where dose is matched to indication/reason for exam; i.e. extremities or head) Use of iterative reconstruction technique DLP: 768 mGy-cm FINDINGS: No acute osseous or soft tissue abnormality. Masses are clear. Left maxillary sinus retention cyst. There is no evidence of acute intracranial hemorrhage or territorial infarction. No abnormal mass effect or midline shift is seen. Mays to white matter differentiation is well preserved. No extra-axial fluid collections are identified. No hydrocephalus. No significant volume loss. There is no abnormal attenuation within the brain parenchyma. CT/CT head/brain wo IV con IMPRESSION: No acute intracranial abnormality including hemorrhage, mass effect, hydrocephalus, or acute territorial edematous infarction. Electronically signed by: Jarod Jorge MD 02/13/2024 07:20 PM EDT
[2024-02-13 16:36] VITALS: BP 109/73; BP 115/74; PULSE 90; PULSE 92; RESP 18; TEMP 36.5; O2SAT 95; O2SAT 97; BMI 33.2
--- OUTSIDE RECORDS SUMMARY | 2024-02-13 17:00 | XMS_ITS | Patient Health Record ---
Author Organization [facility] Address [address], [place] [id number] Support Name Relationship Address Phone Dajuan Reanna Emergency Contact [address] [place], [place] [id number] Juan Rush Guarantor Unknown Unavailable REASON FOR REFERRAL No Information SOCIAL HISTORY Sex Assigned At : Social History Observation Description Sex Assigned At Unknown PLAN OF TREATMENT No Information Insurance Providers Payer Name Payer Address Payer Phone Subscriber Number Group Number Insured Name Patient Relationship to Insured Coverage Start Date Coverage End Date [place] Medicare Part [place] [employer] [address] [place] [address] [id number] Juan Kilgore Self - patient is the insured
--- NOTE | 2024-02-13 17:08 | ECG_ITS ---
Test Reason : SYNCOPE Blood Pressure : / mmHG Vent. Rate : 087 BPM Atrial Rate : 087 BPM P-R Int : 110 ms QRS Dur : 110 ms QT Int : 360 ms P-R-T Axes : 065 060 058 degrees QTc Int : 433 ms Sinus rhythm with short NV Otherwise normal ECG When compared with ECG of 18-NOV-2012 02:15, QT has lengthened Referred By: Josemanuel Castillo Electronically Signed By:TIMO BROWN
--- NOTE | 2024-02-13 17:20 | ED.SYNCOPE ---
HPI - Syncope General Chief Complaint: Syncope Stated Complaint: SYNCOPAL EPISODE AFTER A HEADACHE Time Seen by Provider: 02/13/24 17:19 Source: patient Mode of arrival: ambulatory Limitations: no limitations History of Present Illness ED Provider: akua DAY narrative: Patient's history of migraine headaches noticed severe headache behind the eyes around 14:00 with nausea vomited 2 times no palpitation no chest pain and patient almost passed out consciousness no history of syncope episode in the past no fever no chills Related Data Previous Rx's ?Medication ?Instructions ?Recorded gemfibrozil 600 mg tablet 600 mg PO BID 30 days #60 tabs 03/09/21 fluticasone propionate 50 1 spray intranasal BID 30 days #16 07/10/21 mcg/actuation nasal grams spray,suspension cetirizine 10 mg tablet (Allergy 10 mg PO DAILY PRN allergy 08/24/21 Relief (cetirizine)) symptoms 90 days #90 tabs hydrochlorothiazide 12.5 mg tablet 12.5 mg PO DAILY 30 days #30 tabs 08/31/21 docusate sodium 100 mg capsule 100 mg PO DAILY #30 caps 10/16/21 ibuprofen 800 mg tablet 800 mg PO Q8H PRN pain 30 days #90 11/13/21 tabs metformin 500 mg tablet 500 mg PO DAILY 30 days #30 tabs 12/11/21 eaatzkftmh-dtavfrspokdrc-gxqqlltm 1 tab PO Q6H PRN haeadace #20 tabs 02/13/24 50 mg-325 mg-40 mg tablet sumatriptan succinate 50 mg tablet 50 mg PO Q2H PRN migraine headache 02/13/24 (Imitrex) #10 tabs Allergies Allergy/AdvReac Type Severity Reaction Status Date / Time No Known Allergies Allergy Verified 02/13/24 16:41 Review of Systems Review of Systems: Yes all other systems are reviewed and are negative COUNTS INCLUDE 234 BEDS AT THE [facility] Past Medical History Medical History COVID-19 vaccine series completed Bilateral inguinal hernia HTN (hypertension) Hypertriglyceridemia Fatty liver Inguinal hernia Umbilical hernia Surgical History History of bilateral inguinal hernia repair (~2020) Hx laparoscopic cholecystectomy Hx of umbilical hernia repair History of back surgery Family History Family History Father Myocardial infarction Mother Myocardial infarction Social History Social History Housing: Apartment Alcohol intake: never Patient Tobacco Use Status: Former Tobacco user Tobacco use type: Cigarette Smoked in Last 30 Days: No e-Cigarette/Vaping Use: Never Used Second Hand Smoke Exposure: No Use of substances other than those prescribed or required for medical reasons: Yes Substance Use Type: Marijuana Substance Use Frequency: Daily Last Used Substance: Hours (ago) Advance Directives: No Advance Directives Information Provided: No Do you have a plan to hurt others: No Plan service: No Current occupational status: unemployed Cognitive needs: No Hearing needs: No Vision needs: No Physical Exam Vital Signs: Vital Signs: Last Vital Signs Temp 98.2 F 02/13/24 20:20 Pulse 86 02/13/24 20:20 Resp 23 H 02/13/24 20:20 BP 116/75 02/13/24 20:20 Pulse Ox 95 02/13/24 20:20 O2 Del Method Room Air 02/13/24 20:20 BMI result Body Mass Index 33.2 Appearance: Alert. Oriented X3. No acute distress. Eyes: PERRLA, No Nystagmus ENT: Pharynx normal. Oral Mucosa moist no temporal artery tenderness Neck: Normal inspection. Neck supple. CVS: Normal heart rate and rhythm. Pulses normal. Respiratory: No respiratory distress. Equal air entry bilateral, no wheezing/rales/rhonchi Abdomen: Soft and nontender. Bowel sounds are present, no mass palpable, no CVA tenderness Skin: Skin warm and dry. Normal skin color. Normal skin turgor. Extremities: No lower extremity edema. No calf tenderness Neuro: Oriented X 3. No motor deficit. No sensory deficit.No cerebellar signs , cranial nerves II-XII intact Medications Administered Discontinued Medications Generic Name Dose Route Start Last Admin Trade Name Freq PRN Reason Stop Dose Admin Ondansetron HCl 4 mg 02/13/24 17:51 02/13/24 19:09 Ondansetron Odt 4 Mg Tab.Rapdis TRANSLINGU 02/13/24 17:52 4 mg ONCE ONE Administration Sumatriptan Succinate 6 mg 02/13/24 17:51 02/13/24 19:09 Sumatriptan Succinate 6 Mg/0.5 Ml Vial SUBCUT 02/13/24 17:52 6 mg ONCE ONE Administration Medical Decision Making Medical Decision Making [facility] Narrative: Patient is stable vitals with near-syncope episode having severe headache which improved after Imitrex patient is feeling much better discharge patient home on Imitrex and Fioricet Differential Diagnosis Differential Diagnoses: The differential diagnosis associated with the presentation includes Status migraine/vasovagal Independent Interpretation I performed an independent interpretation of an: EKG Interpretation: Normal sinus rhythm heart rate 87 beats sinus no acute ST-T changes no acute ischemia Discharge Plan Discharge Clinical Impression: Migraine Patient Disposition: Home, Self-Care Instructions: Migraine Headache (ED) Additional Instructions: Rest at home Take Imitrex 1 tablet at onset of headache may repeat 2nd tablet in 2 hours if headache continues maximum 2 tablets in 24 hours Fioricet 1 tablet every 6-8 hours as needed for the headache Follow with your PCP Prescriptions: New sumatriptan succinate [Imitrex] 50 mg tablet 50 mg PO Q2H PRN (Reason: migraine headache) Qty: 10 0RF Rx Instructions: do not exceed 2 doses per 24 hrs vflbjtldqe-vyyatydtjrjvb-xypg 50-325-40 mg tablet 1 tab PO Q6H PRN (Reason: haeadace) Qty: 20 0RF No Action fluticasone propionate 50 mcg/actuation spray,suspension 1 spray intranasal BID 30 Days Qty: 16 3RF Rx Instructions: administer into each nostril cetirizine [Allergy Relief (cetirizine)] 10 mg tablet 10 mg PO DAILY PRN (Reason: allergy symptoms) 90 Days Qty: 90 1RF hydrochlorothiazide 12.5 mg tablet 12.5 mg PO DAILY 30 Days Qty: 30 4RF ibuprofen 800 mg tablet 800 mg PO Q8H PRN (Reason: pain) 30 Days Qty: 90 0RF metformin 500 mg tablet 500 mg PO DAILY 30 Days Qty: 30 3RF gemfibrozil 600 mg tablet 600 mg PO BID 30 Days Qty: 60 4RF docusate sodium 100 mg capsule 100 mg PO DAILY Qty: 30 4RF Interventions: ED Discharge Assessment Last Done: 02/13/24 20:20 Discharge Date/Time: 02/13/24 20:15 Print Language: Indonesian
[2024-02-13] MEDS: SUMAtriptan succinate 6 MG/0.5 ML VIAL SUBCUT (19:09)
[2024-02-13] MEDS: Ondansetron ODT 4 MG TAB.RAPDIS TRANSLINGU (19:09)
[2024-02-13 19:11] VITALS: BP 119/76; PULSE 81; RESP 22; TEMP 36.6; O2SAT 95
[2024-02-13 19:21] VITALS: PULSE 81; O2SAT 95
[2024-02-13 20:15] VITALS: BP 116/75; PULSE 86; RESP 23; TEMP 36.8; O2SAT 95
[2024-02-13 20:20] VITALS: BP 116/75; PULSE 86; RESP 23; TEMP 36.8; O2SAT 95
== END 2024-02-13 20:15 | disposition home or self-care (01) ==
PROVIDERS: Emergency Provider Internal Medicine
DX: G43.909 Migraine, unspecified, not intractable, without status migrainosus (principal); R55 Syncope and collapse; R94.31 Abnormal electrocardiogram [ECG] [EKG]
CPT/HCPCS: 70450; 93005; 96372; 99284; 99285; J3030